=== PATIENT | male | born 1985 | race Caucasian/White ===

== ENCOUNTER 2019-08-20 09:22 | Day surgery (SDC) | payer OTHER | END 2019-08-20 14:50 | disposition home or self-care (01) | LOC: SDC 09:22 → EEVIPCON 09:22 → SDC 18:15 | PROVIDERS: ATTEND Oral & Maxillofacial Surgery | DX: S02.19XA Other fracture of base of skull, initial encounter for closed fracture (principal); Z53.9 Procedure and treatment not carried out, unspecified reason | CPT/HCPCS: J0690 ==

== ENCOUNTER 2019-08-25 06:08 | Observation (INO) | payer OTHER ==
[2019-08-25] MEDS ORDERED: Chlorhexidine Gluconate 15 ML UDCUP SSP ONE (06:28)
[2019-08-25] MEDS ORDERED: Lidocaine 1% w/Epinephrine 1:100K 20 ML VIAL ONE (06:28)
[2019-08-25] MEDS ORDERED: Lidocaine 2% w/Epinephrine 1:200K 20 ML VIAL ONE (07:32)
[2019-08-25] MEDS ORDERED: Bacitracin Zinc Ointment 30 gm TUBE ONE (07:32)
[2019-08-25] MEDS ORDERED: Fentanyl 100 MCG/2 ML VIAL ONE ×4 (07:38→12:32)
[2019-08-25] MEDS ORDERED: Midazolam HCl 2 mg/2 ml Vial ONE (07:38)
[2019-08-25] MEDS ORDERED: Fentanyl 250 MCG/5 ML VIAL ONE (09:03)
[2019-08-25] MEDS ORDERED: Meperidine HCl/PF 25 MG/ML VIAL ONE (11:02)
[2019-08-25] MEDS ORDERED: Promethazine HCl 25 MG/ML VIAL ONE (11:14)
[2019-08-25] MEDS ORDERED: Ondansetron PF 4 MG/2 ML Vial SLOW IVP PRN (11:26)
[2019-08-25] MEDS ORDERED: Promethazine HCl 25 MG/ML VIAL IM PRN (11:39)
[2019-08-25] MEDS ORDERED: Promethazine HCl 25 MG/ML VIAL SLOW IVP PRN (11:39)
[2019-08-25] MEDS ORDERED: Meperidine HCl/PF 25 MG/ML VIAL SLOW IVP PRN (11:39)
[2019-08-25] MEDS ORDERED: Ondansetron HCl/PF 4 MG/2 ML Vial IVP PRN (11:39)
[2019-08-25] MEDS: CEFAZOLIN 2 GM in Premix Bag 1 BAG IVPB SCH ×2 (15:18→22:38)
[2019-08-25] MEDS: HYDROcodone/Acetaminophen 5/325 mg Tablet PO PRN (15:26)
[2019-08-25] MEDS ORDERED: Succinylcholine Chloride 20 MG/ML 10 ml SYRINGE FS ONE (15:38)
[2019-08-25] MEDS ORDERED: Rocuronium Bromide 10 MG/ML (10ML VIAL) ONE (15:38)
[2019-08-25] MEDS ORDERED: Ondansetron PF 4 MG/2 ML Vial ONE (15:38)
[2019-08-25] MEDS ORDERED: Ketorolac Tromethamine 30 MG/ML VIAL ONE (15:38)
[2019-08-25] MEDS ORDERED: PROPOFOL 200 MG/20 ML VIAL ONE (15:38)
[2019-08-25] MEDS ORDERED: Dexamethasone 20 MG/5 ML VIAL ONE (15:38)
[2019-08-25] MEDS ORDERED: Metoprolol Tartrate 5 MG/5 ML VIAL ONE (15:38)
[2019-08-25 16:29] VITALS: BMI 25.1
[2019-08-25] MEDS: Ketorolac Tromethamine 30 MG/ML VIAL IVP PRN (18:19)
[2019-08-25] MEDS ORDERED: Dexamethasone 10 MG/ML VIAL SLOW IVP SCH (20:45)
[2019-08-25] MEDS: Morphine 2 MG/ML SYRINGE SLOW IVP PRN (21:21)
[2019-08-26] MEDS: HYDROcodone/Acetaminophen 5/325 mg Tablet PO PRN ×4 (01:24→18:04)
[2019-08-26] MEDS: Morphine 2 MG/ML SYRINGE SLOW IVP PRN ×3 (01:25→13:00)
[2019-08-26] MEDS: CEFAZOLIN 2 GM in Premix Bag 1 BAG IVPB SCH ×2 (06:04→17:07)
--- NOTE | 2019-08-26 08:54 | OP ---
DATE OF PROCEDURE: 08/25/2019 PREOPERATIVE DIAGNOSIS: Displaced anterior table fracture of the frontal sinus. POSTOPERATIVE DIAGNOSIS: Displaced anterior table fracture of the frontal sinus. TREATMENT: Open reduction and internal fixation of the anterior table fracture and the frontal sinus via a coronal approach. PORTABLE MACHINE CUTTER: Dr. Neto Alejo DDS, ESTIMATED BLOOD LOSS: 300 mL. FLUIDS: 1700 mL of isotonic crystalloid. URINE OUTPUT: No Mary. FINDINGS: Comminuted fracture and displacement of the anterior table. Nasofrontal outflow tracts appear intact. 1 cm portion of the superior orbital rim comminuted. No posterior table fracture. Hardware 0.4 mm silver titanium mesh with 4 mm mono-cortical titanium alloy screws. ANESTHESIA: General endotracheal anesthesia. COMPLICATIONS: None. DISPOSITION: PACU. INDICATIONS FOR SURGERY: The patient initially presented to the [facility] with complaints of "I hit my head while playing basketball on a pole." The patient is currently a prisoner and was injured while playing basketball in jail grounds. The patient denies loss of consciousness. GCS was 15, no neuro involvement. CT scan was reviewed and revealed a displaced comminuted anterior table fracture of the frontal sinus. The patient was evaluated and after clinical and radiographic exam, it was determined that the patient would benefit from an open reduction and internal fixation of the anterior table of the frontal sinus via a coronal approach in the operating room under general anesthesia. Discussed risks, benefits, indications, and alternatives for the procedure. Patient elected to continue with the recommended treatment. The day of surgery, patient was met in the preoperative holding area. Patient identification and site and procedure were confirmed. Medical history was reviewed. The patient again had the opportunity to ask questions and have them answered. He then elected to proceed with the recommended treatment. The patient was transferred to operating room 7, laid on the operating room table in supine position. Cardiopulmonary monitors were applied. The patient was good candidate to undergo general anesthesia. Patient was induced under general anesthesia via intravenous route. The patient's eyes were protected with Tegaderm. The patient was intubated via oral endotracheal tube, and was secured by the surgical team. The patient's bed was then rotated 180 degrees using surgical marking pen and hair clippers. The patient's hair was trimmed along the area of proposed incision using a marking pen, identified incision in a curvilinear approach stemming 4 cm posterior to the mid trachea and 5 cm posterior to 's peak ending at the mid helix bilaterally. The patient was then prepped and draped in a standard sterile fashion. Ioban was used to cover the oral cavity. Used 10 mL of 2% lidocaine with 100,000 to 200,000 epinephrine in the proposed incision site. Next, using a 10 blade, made our incision from the mid helix down through skin and subcutaneous tissue down to underlying temporalis fascia, extended our incision in a curvilinear fashion in an oblique angle to decrease the risk of damage to hair follicles, extended our incision in the contralateral mid helix. The incision was placed from superior temporal line to superior temporal line down to and through the galea aponeurotica and down through the areolar tissue and bilaterally down to the temporalis fascia. Next, using blunt and sharp dissection staying within the proper surgical planes, the coronal flap was reflected approximately 3 to 4 cm superior to the supraorbital rims. A subperiosteal incision was performed using a 10 blade from superior temporal line to the superior temporal line. Next, subperiosteal dissection was accomplished down to and identified the left frontal sinus displaced anterior table fractures. Copious irrigation of site. Frontal sinus was examined and irrigated copiously. Loose bony fragments were removed and placed on the back table and sterile saline for later fixation. Next, used a 0.4 mm titanium mesh, was trimmed and custom contoured to the left frontal sinus using 4 mm mono-cortical self-drilling screws and secured titanium mesh along with the comminuted segments. Able to achieve excellent reapproximation and pre-traumatic fixation of anterior table frontal sinus. Nasofrontal outflow tracts seem intact. Noted about a 1 cm area of the supraorbital rim and noted to be comminuted. No need to obliterate the sinus. Copious irrigation of site. Hemostasis obtained. Next elected for closure. Coronal flap was repositioned using 2-0 Vicryl sutures and SH needle, placed multiple deep interrupted sutures. We then used the stapler for primary skin closure along with placing two 7 mm ROSA drains to prevent hematoma. Site was covered with bacitracin, Xeroform dressings, and a compression wrap was placed using Kerlix and Coban. At this point, the procedure was deemed complete. The patient's eyes were irrigated with balanced salt solution. The patient was extubated and transferred to the PACU with spontaneous respirations intact and noted to be stable. Job ID: [id number]
[2019-08-26 12:03] VITALS: BP 106/65; TEMP 98
[2019-08-26] MEDS: Ketorolac Tromethamine 30 MG/ML VIAL IVP PRN (13:12)
[2019-08-26] MEDS ORDERED: Triple Antibiotic Oint 1 GM Packet TOP SCH ×2 (13:15→18:00)
[2019-08-26] MEDS ORDERED: FLU VACC QS2019-20(6MOS UP)/PF 60 MCG/0.5 ML SYRINGE IM ONE (15:00)
--- NOTE | 2019-08-27 13:34 | DIS ---
DATE OF ADMISSION: 08/25/2019 DATE OF DISCHARGE: 08/26/2019 PREOPERATIVE DIAGNOSIS: Anterior table fracture of the frontal sinus. POSTOPERATIVE DIAGNOSIS: Displaced anterior table fracture of the frontal sinus. TREATMENT: Open reduction and internal fixation of anterior table frontal sinus via a coronal approach. The patient is one day status post treatment. The patient has had an unremarkable hospital course. The patient was admitted for observation for pain control. He has received oral and IV pain medication. The patient denies any nausea or vomiting. The patient is ambulating and micturating. The patient is tolerating oral intake. Vitals are stable. The patient with compression head wrap on, two ROSA drains exiting and secured. Total discharge or output from ROSA drains less than 30 mL in the past 24 hours. Dressing was removed. Coronal incision line was cleaned and dressed with bacitracin ointment. ROSA drains were removed. The patient's frontal branch of facial nerve intact bilaterally. The patient was given all postoperative instructions and advised to return to [facility] information systems supervisor to follow up. Postoperative pain medication included Ultram 50 mg x20 tablets, Motrin 800 mg x20 tablets, bacitracin ointment x2 tubes, Afrin nasal spray, and Sudafed 30 mg x20 tablets, Augmentin 875 mg x14 tablets. The patient will be put on sinus precautions for 3 weeks. The patient is currently a prisoner in the [facility] at [place]. The patient's guard was in room and present during this conversation. Medications were given via recommendation on a progress note at the hospital by guard preferred medications be called into [facility], which they were. All questions were thoroughly answered. The patient is aware to follow up with [facility] information systems supervisor Department in 10 days for staple removal and followup. Job ID: [id number]
== END 2019-08-26 18:25 ==
LOC: SDC 06:08 → SURG A 11:00
PROVIDERS: ADMIT Oral & Maxillofacial Surgery; ATTEND Oral & Maxillofacial Surgery
PROC: 0NS104Z Reposition Frontal Bone with Internal Fixation Device, Open Approach (ICD-10-PCS; principal; 2019-08-25)
DX: S02.19XA Other fracture of base of skull, initial encounter for closed fracture (principal); S02.411A LeFort I fracture, initial encounter for closed fracture; Z79.2 Long term (current) use of antibiotics; W22.8XXA Striking against or struck by other objects, initial encounter; Y93.67 Activity, basketball
CPT/HCPCS: 90471; 90686; 96365; 96366; 96375; 96376; C1713; G0008; G0378; J0690; J1100; J1885; J2175; J2250; J2270; J2405; J2550; J2704; J3010